=== PATIENT | male | born 1980 | race Caucasian/White ===

== ENCOUNTER → 2018-05-29 | Outpatient (CLI) | payer OTHER ==
[~2018-05-29] MED LIST: AMOX-559 PO; CIPR-344 PO; FLUT16SP19 NS; GABA-503 PO; GABA-549 PO; GOLYTE PO; IBUP800T37 PO; LOR5/325 PO; METR-1 PO; OXYC-869 PO; SELE180S6 TP; TRAM-420 PO
[2018-05-29 16:31] LABS: PLATELET COUNT, AUTOMATED 282 K/uL (150-450)
[2018-05-29 16:45] LABS: LDL CHOLESTEROL 58 mg/dl
== END ==
LOC: LAB 16:14
PROVIDERS: ATTEND Internal Medicine
DX: E78.5 Hyperlipidemia, unspecified (principal); M54.9 Dorsalgia, unspecified
CPT/HCPCS: 36415; 82040; 82247; 82310; 82374; 82435; 82465; 82565; 82947; 83718; 84075; 84132; 84155; 84295; 84443; 84450; 84460; 84478; 84520; 85025

== ENCOUNTER → 2019-04-19 | Outpatient (CLI) | payer OTHER ==
[~2019-04-19] MED LIST changes: +ESCI10TA8 PO; +ESCI20TA8 PO; -GABA-503 PO; +GABA-533 PO; +LEVO25TA57 PO; +METH18ERPT PO
[2019-04-19 14:07] LABS: PLATELET COUNT, AUTOMATED 264 K/uL (150-450)
== END ==
LOC: LAB 13:45
PROVIDERS: ATTEND Internal Medicine
DX: K57.92 Diverticulitis of intestine, part unspecified, without perforation or abscess without bleeding (principal); R10.9 Unspecified abdominal pain
CPT/HCPCS: 36415; 81001; 82040; 82247; 82310; 82374; 82435; 82565; 82947; 84075; 84132; 84155; 84295; 84443; 84450; 84460; 84520; 85025

== ENCOUNTER → 2019-04-20 | Outpatient (CLI) | payer OTHER ==
[~2019-04-20] MED LIST changes: +IOPAMIDOL 76% 100 ML INFUS BTL 100 ML ONE
--- NOTE | 2019-04-20 15:02 | RADIOLOGY IMAGING REPORT ---
FACILITY: [facility] [place] PATIENT NAME: Kieran Howard : 1980 MR: [id number] V: [id number] EXAM DATE: ORDERING PHYSICIAN: BRUNO REDDING TECHNOLOGIST: Location: [facility] [place] Patient: Kieran Howard : 1980 Visit/Account:[id number] Date of Sevice: 04/20/2019 CT ABDOMEN PELVIS W & W/O CONTRAST HISTORY: LLQ abd pain, Probable diverticulitis TECHNIQUE: Axial images acquired through the abdomen/pelvis both with and without IV contrast.. Elias nal and sagittal reformatting also performed.Dose Lowering Technique One of the following dose optimization techniques was utilized in the performance of this exam: Autom ated exposure control; adjustment of the mA and/or kV according to the patient's size; or use of an i terative reconstruction technique. Specific details can be referenced in the facility's radiology C T exam operational policy. CONTRAST: 75 mL Isovue-[id number] COMPARISON: None. FINDINGS: Visualized lung bases: Negative. Hepatobiliary: Gallbladder is partially contracted which may be related to a recent meal Spleen: Negative. Adrenals: Negative. Pancreas: Negative. Kidneys ureters and bladder: Negative. Genitalia: Surgical clips are identified in the superior aspect of the scrotal sacs bilaterally GI: There is scattered diverticula in the left-sided the colon. The wall of the mid to distal desce nding colon is slightly thickened. There are subtle infiltrative change in the pericolonic fat. Thi s may represent mild acute diverticulitis as the clinical history suggests. There is no evidence of a peridiverticular abscess. Vessels/spaces/nodes: Negative. Bones/soft tissues: Negative. Additional findings: None pertinent. IMPRESSION: There is scattered diverticula in the left side of the colon. The wall of the mid to distal descendi ng colon is slightly thickened. There are subtle infiltrative changes in the pericolonic fat. This may represent mild acute diverticulitis as the clinical history suggests Gallbladder is partially contracted which may be related to a recent meal Report Dictated By: Kusum Lion MD at 04/20/2019 2:49 PM Report E-Signed By: Kusum Lion MD at 04/20/2019 2:55 PM WSN:[email or web address]
== END ==
LOC: CT 07:06
PROVIDERS: ATTEND Internal Medicine
DX: K57.30 Diverticulosis of large intestine without perforation or abscess without bleeding (principal)
CPT/HCPCS: 74178; Q9967